=== PATIENT | female | born 1995 | race Caucasian/White ===

== ENCOUNTER 2022-03-18 10:21 | Emergency (ER) | payer OTHER, SELFPAY ==
[2022-03-18 10:32] VITALS: BP 137/85; PULSE 88; RESP 18; TEMP 37; O2SAT 100; BMI 26.2
[2022-03-18 11:22] VITALS: BP 137/85; PULSE 88; RESP 20; TEMP 37; O2SAT 100
[2022-03-18 11:22] LABS: UPreg QC Valid YES; Urine Pregnancy NEGATIVE (NEGATIVE)
[2022-03-18 11:32] LABS: Amphetamine Screen Urine Not Detected (Not Detect); Barbiturates, Urine Not Detected (Not Detect); Benzodiazepines Screen Urine Not Detected (Not Detect); Cannabinoid Screen Urine Not Detected (Not Detect); Cocaine Screen Urine Not Detected (Not Detect); Fentanyl, urine Not Detected (Not Detect); Opiate Screen Urine Not Detected (Not Detect); Phencyclidine Screen Urine Not Detected (Not Detect)
[2022-03-18 11:34] LABS: COVID-19 Test Negative (Negative); IDNOW Serial# 55D5AD1C
[2022-03-18 12:00] VITALS: RESP 20
--- NOTE | 2022-03-18 12:01 | ED.PSYCH ---
HPI - Psych General Chief Complaint: Psychiatric Symptoms Stated Complaint: Crisis Depression Time Seen by Provider: 03/18/22 11:26 Source: patient and other (Friend/neighbor) Mode of arrival: ambulatory Limitations: no limitations History of Present Illness HPI Narrative: Patient is Romansh speaking only. Fur Stylist was offered but respectfully declined. Patient states she would prefer her friend/neighbor to interpret who is at bedside Patient comes to the emergency room complaining of depression. Patient states that she has had thoughts of hurting herself but she has never attempted to commit suicide. Denies suicidal ideation. Patient states that previously in [place], she was being treated for depression. Patient has not taking any medications for over year and a half. Patient states that she feels very stressed, currently going through immigration process. Patient requesting to be [facility] by [facility] and establish care in an outpatient basis. Related Data Allergies Allergy/AdvReac Type Severity Reaction Status Date / Time No Known Allergies Allergy Verified 03/18/22 10:37 Review of Systems Review of Systems: Constitutional : No Weight loss, No Fever, No Chills, No Night Sweats, No Fatigue, No Malaise ENT/Mouth : No Hearing loss, No Ear Pain, No Nasal Congestion, No Sinus Pain, No Hoarseness, No sore throat, No Rhinorrhea, No Swallowing Difficulty Eyes: No Eye Pain, No Swelling, No Redness, No Foreign Body, No Discharge, No Vision Changes Cardiovascular : No Chest Pain, No SOB, No Dyspnea on Exertion, No Orthopnea, No Edema, No Palpitations Respiratory : No Cough, No Sputum, No Wheezing, No Smoke Exposure, No Dyspnea Gastrointestinal : No Nausea, No Vomiting, No Diarrhea, No Constipation, No abdominal Pain, No Hematochezia, No Melena Genitourinary : no irregular bleeding, No Dysuria, No Urinary Frequency, No Hematuria, No Urinary Incontinence, No Urgency, No Flank Pain, No Urinary Flow Changes, No Hesitancy Musculoskeletal : No joint pain, No Myalgias, No Joint Swelling Skin : No Skin Lesions, No rash Neuro : No Weakness, No Numbness, No Paresthesias, No Loss of Consciousness, No Dizziness, No Headache Psych : No Anxiety/Panic, complaining of Depression, complaining of vague suicidal ideation, no homicidal ideation Heme/Lymph: No Bruising, No Bleeding,No Lymphadenopathy Endocrine : No Polyuria, No Polydipsia, No Temperature Intolerance PMFSH Past Medical History Medical History Hyperlipidemia Surgical History Hx of cholecystectomy Social History Social History Alcohol intake: never Patient Tobacco Use Status: Never used Tobacco Use of substances other than those prescribed or required for medical reasons: No Advance Directives: No Advance Directives Information Provided: Yes Patient : No Physical Exam Vital Signs: Vital Signs: Last Vital Signs Temp 98.6 F 03/18/22 11:22 Pulse 88 03/18/22 11:22 Resp 20 03/18/22 12:00 BP 137/85 03/18/22 11:22 Pulse Ox 100 03/18/22 11:22 O2 Del Method 03/18/22 11:22 BMI result Body Mass Index 26.2 Const: Other: Appearance: Alert. Oriented X3. No acute distress. Eyes: Pupils equal, round and reactive to light. ENT: Pharynx normal. Neck: Normal inspection. Neck supple. No lymph nodes noted. No crepitus CVS: Normal heart rate and rhythm. Pulses normal. Normal S1 and S2 Respiratory: No respiratory distress. Breath sounds normal. No Wheezing. No rales Abdomen: Soft and nontender. No rigidity. No distention. Skin: Skin warm and dry. Normal skin color. Normal skin turgor. Extremities: No lower extremity edema. No Lacerations. No Rash Neuro: Oriented X 3. No motor deficit. No sensory deficit. Moving all extremities. No slurred speech. CN 2 through 12 grossly intact Psych: calm, cooperative, normal affect Course Course Course Narrative: Patient's labs are pending [facility] consult pending. Physician observation started at 11:59 15:40, patient was evaluated by [facility], patient was given resources for outpatient treatment. Patient is not suicidal, ready for discharge MDM - Psych Lab Data Result diagrams: 03/18/22 12:40 03/18/22 12:40 Labs: Lab Results 03/18/22 03/18/22 03/18/22 Range/Units 11:06 11:06 11:06 WBC (4.8-10.8) X10*3/uL RBC (4.20-5.50) X10*6/uL Hgb (12.0-16.0) g/dl Hct (37.0-47.0) % MCV (80.0-98.0) fL MCH (27.0-33.0) pg MCHC (31.0-35.0) g/dl RDW (11.0-16.0) % Plt Count (160-400) X10*3/uL MPV (9.4-12.3) fL Immature Gran % (Auto) (0.0-0.4) % Neut % (Auto) (45-73) % Lymph % (Auto) (20-40) % [place] % (Auto) (2-11) % Eos % (Auto) (0-4) % Baso % (Auto) (0-2) % Lymph # (Auto) (1.2-4.9) X10*3/uL [place] # (Auto) (0.1-1.2) X10*3/uL Eos # (Auto) (0.0-0.4) X10*3/uL Baso # (Auto) (0.0-0.2) X10*3/uL Abs Immat Gran (auto) (0.00-0.03) X10*3/uL Absolute Neuts (auto) (2.0-8.3) x10*3/uL Absolute Nucleated RBC (0.0-0.012) X10*3/uL Nucleated RBC % (auto) (0.0-0.2) /100WBC Sodium (135-145) mmol/L Potassium (3.3-5.1) mmol/L Chloride (96-108) mmol/L Carbon Dioxide (22-29) mmol/L Anion Gap (12-20) BUN (9-16) mg/dL Creatinine (0.5-1.4) mg/dL Estim Creat Clear Calc Estimated GFR Random Glucose (60-115) mg/dL Calcium (8.4-10.2) mg/dL Total Bilirubin (0.0-1.0) mg/dL Direct Bilirubin (0.0-0.5) mg/dL AST (5-31) U/L ALT (0-31) U/L Alkaline Phosphatase (39-117) U/L Total Protein (6.5-8.0) g/dL Albumin (3.5-5.0) g/dL Urine Test NEGATIVE (NEGATIVE) Urine Opiates Screen Not Detected (Not Detect) Urine Fentanyl Screen Not Detected (Not Detect) Ur Barbiturates Screen Not Detected (Not Detect) Ur Phencyclidine Scrn Not Detected (Not Detect) Ur Amphetamines Screen Not Detected (Not Detect) U Benzodiazepines Scrn Not Detected (Not Detect) Urine Cocaine Screen Not Detected (Not Detect) U Marijuana (THC) Screen Not Detected (Not Detect) Ethyl Alcohol mg/dL COVID-19 (PRINCE) Negative (Negative) COVID-19 Clin Com See Note 03/18/22 03/18/22 Range/Units 12:40 12:40 WBC 4.9 (4.8-10.8) X10*3/uL RBC 4.95 (4.20-5.50) X10*6/uL Hgb 12.9 (12.0-16.0) g/dl Hct 38.6 (37.0-47.0) % MCV 78.0 L (80.0-98.0) fL MCH 26.1 L (27.0-33.0) pg MCHC 33.4 (31.0-35.0) g/dl RDW 13.9 (11.0-16.0) % Plt Count 259 (160-400) X10*3/uL MPV 10.4 (9.4-12.3) fL Immature Gran % (Auto) 0.4 (0.0-0.4) % Neut % (Auto) 63.3 (45-73) % Lymph % (Auto) 26.9 (20-40) % [place] % (Auto) 8.2 (2-11) % Eos % (Auto) 0.8 (0-4) % Baso % (Auto) 0.4 (0-2) % Lymph # (Auto) 1.3 (1.2-4.9) X10*3/uL [place] # (Auto) 0.4 (0.1-1.2) X10*3/uL Eos # (Auto) 0.0 (0.0-0.4) X10*3/uL Baso # (Auto) 0.0 (0.0-0.2) X10*3/uL Abs Immat Gran (auto) 0.02 (0.00-0.03) X10*3/uL Absolute Neuts (auto) 3.1 (2.0-8.3) x10*3/uL Absolute Nucleated RBC 0.000 (0.0-0.012) X10*3/uL Nucleated RBC % (auto) 0.0 (0.0-0.2) /100WBC Sodium 139 (135-145) mmol/L Potassium 4.7 (3.3-5.1) mmol/L Chloride 107 (96-108) mmol/L Carbon Dioxide 25 (22-29) mmol/L Anion Gap 12 (12-20) BUN 10 (9-16) mg/dL Creatinine 0.71 (0.5-1.4) mg/dL Estim Creat Clear Calc 118.8 Estimated GFR > 60 Random Glucose 94 (60-115) mg/dL Calcium 8.8 (8.4-10.2) mg/dL Total Bilirubin 0.4 (0.0-1.0) mg/dL Direct Bilirubin < 0.2 (0.0-0.5) mg/dL AST 25 (5-31) U/L ALT 38 H (0-31) U/L Alkaline Phosphatase 75 (39-117) U/L Total Protein 7.1 (6.5-8.0) g/dL Albumin 4.2 (3.5-5.0) g/dL Urine Test (NEGATIVE) Urine Opiates Screen (Not Detect) Urine Fentanyl Screen (Not Detect) Ur Barbiturates Screen (Not Detect) Ur Phencyclidine Scrn (Not Detect) Ur Amphetamines Screen (Not Detect) U Benzodiazepines Scrn (Not Detect) Urine Cocaine Screen (Not Detect) U Marijuana (THC) Screen (Not Detect) Ethyl Alcohol < 10 mg/dL COVID-19 (PRINCE) (Negative) COVID-19 Clin Com Discharge Plan Discharge Clinical Impression: Depression Patient Disposition: Home, Self-Care Instructions: Depression (ED) Additional Instructions: Please follow-up with your primary care physician tomorrow. If you have any worsening or new symptoms, please return to the emergency room or call 911
[2022-03-18 12:44] LABS: MANUAL DIFF FLAG NO
[2022-03-18 12:55] LABS: Basophils Percent Auto 0.4 % (0-2); Eosinophils Percent Auto 0.8 % (0-4); Hematocrit 38.6 % (37.0-47.0); Hemoglobin 12.9 g/dl (12.0-16.0); Imm Gran Abs Auto 0.02 X10*3/uL (0.00-0.03); Imm Gran Pct Auto 0.4 % (0.0-0.4); Lymphocytes Absolute Auto 1.3 X10*3/uL (1.2-4.9); Lymphocytes Percent Auto 26.9 % (20-40); Mean Corpuscular HGB Conc 33.4 g/dl (31.0-35.0); Mean Corpuscular Hemoglobin 26.1 pg (27.0-33.0); Mean Platelet Volume 10.4 fL (9.4-12.3); Monocytes Absolute Auto 0.4 X10*3/uL (0.1-1.2); Monocytes Percent Auto 8.2 % (2-11); Neutrophils Absolute Auto 3.1 x10*3/uL (2.0-8.3); Neutrophils Percent Auto 63.3 % (45-73); Platelet Count 259 X10*3/uL (160-400); Red Blood Count 4.95 X10*6/uL (4.20-5.50); Red Cell Distribution Width 13.9 % (11.0-16.0); White Blood Count 4.9 X10*3/uL (4.8-10.8)
[2022-03-18 13:04] LABS: Alanine Aminotransferase 38 U/L (0-31); Albumin Level 4.2 g/dL (3.5-5.0); Alkaline Phosphatase 75 U/L (39-117); Anion Gap 12 (12-20); Aspartate Amino Transferase 25 U/L (5-31); Bilirubin Direct < 0.2 mg/dL (0.0-0.5); Bilirubin Total 0.4 mg/dL (0.0-1.0); Blood Urea Nitrogen 10 mg/dL (9-16); Calcium 8.8 mg/dL (8.4-10.2); Carbon Dioxide 25 mmol/L (22-29); Chloride 107 mmol/L (96-108); Creatinine Clr Calc Pharmacy 118.8; Estimated Glomerular Filt Rate > 60; Ethanol < 10 mg/dL; Glucose Random 94 mg/dL (60-115); Potassium 4.7 mmol/L (3.3-5.1); Sodium 139 mmol/L (135-145); Total Protein 7.1 g/dL (6.5-8.0)
--- NOTE | 2022-03-18 13:20 | PC.NURSE ---
Patient resting with friend at bedside- seen by MD, awaiting crisis evaluation.
[2022-03-18 14:00] VITALS: RESP 18
[2022-03-18 16:00] VITALS: RESP 18
--- NOTE | 2022-03-18 16:22 | PC.NURSE ---
patient discharged to care of friend
--- NOTE | 2022-03-28 13:03 | MHC.CARE ---
Care Team had a telephonic encounter with [facility] Aby Whatley and she transferred this chief underwriter to Dr. Pebbles Palmer and left a voice message. Purpose of call was to gain insight into a Icelandic Tajik speaking outpatient therapist for pt.
--- NOTE | 2022-03-28 13:21 | MHC.CARE ---
Care Team received a call from Dr. Pebbles Palmer and she reported she will email Dr. Michael to verify if they have a therapist that speaks Faroese Yi. She reported she will add this television writer to the email.
--- NOTE | 2022-03-28 13:45 | MHC.CARE ---
Care Team researched Cypriot Yoruba therapist in [employer]. This screen writer called [facility] [phone] and spoke to Amrit and he reported he has a therapist speaking the language pt was requesting, however, he is not accepting new patients at the moment. He requested to place pt on the waiting list. This screen writer called and spoke to pt and provided [facility] contact information, She agreed to be placed on the waiting list until a therapist is available.
--- NOTE | 2022-04-01 09:38 | MHC.CARE ---
Care Team was assisting pt in obtaining mental health services. This sports book writer received an email from [facility] Aguilar Pierson and she was provided with pt's contact information as she will follow up with mental health services for the pt.
== END 2022-03-18 16:22 | disposition home or self-care (01) ==
PROVIDERS: Emergency Provider Emergency Medicine
DX: F33.1 Major depressive disorder, recurrent, moderate (principal); Z20.822 Contact with and (suspected) exposure to COVID-19; Z79.899 Other long term (current) drug therapy
CPT/HCPCS: 36415; 80048; 80076; 80307; 81025; 82077; 85025; 87635; 99284; 99285

== ENCOUNTER 2024-02-25 12:49 | Outpatient (REF) | payer OTHER, SELFPAY ==
[2024-02-25 14:07] LABS: MANUAL DIFF FLAG NO
[2024-02-25 14:20] LABS: Basophils Percent Auto 0.2 % (0-2); Eosinophils Absolute Auto 0.1 X10*3/uL (0.0-0.4); Eosinophils Percent Auto 0.9 % (0-4); Hematocrit 42.7 % (37.0-47.0); Hemoglobin 13.7 g/dl (12.0-16.0); Imm Gran Abs Auto 0.01 X10*3/uL (0.00-0.03); Imm Gran Pct Auto 0.2 % (0.0-0.4); Lymphocytes Absolute Auto 1.4 X10*3/uL (1.2-4.9); Lymphocytes Percent Auto 26.5 % (20-40); Mean Corpuscular HGB Conc 32.1 g/dl (31.0-35.0); Mean Corpuscular Volume 77.9 fL (80.0-98.0); Mean Platelet Volume 10.6 fL (9.4-12.3); Monocytes Absolute Auto 0.4 X10*3/uL (0.1-1.2); Monocytes Percent Auto 7.4 % (2-11); Neutrophils Absolute Auto 3.5 x10*3/uL (2.0-8.3); Neutrophils Percent Auto 64.8 % (45-73); Platelet Count 304 X10*3/uL (160-400); Red Blood Count 5.48 X10*6/uL (4.20-5.50); Red Cell Distribution Width 13.5 % (11.0-16.0); White Blood Count 5.4 X10*3/uL (4.8-10.8)
[2024-02-25 14:51] LABS: Alanine Aminotransferase 25 U/L (0-31); Albumin Level 4.5 g/dL (3.5-5.0); Alkaline Phosphatase 86 U/L (39-117); Anion Gap 13 (12-20); Aspartate Amino Transferase 22 U/L (5-31); Bilirubin Total 0.5 mg/dL (0.0-1.0); Blood Urea Nitrogen 8 mg/dL (9-16); Calcium 9.8 mg/dL (8.4-10.2); Carbon Dioxide 25 mmol/L (22-29); Chloride 106 mmol/L (96-108); Cholesterol 280 mg/dL (<200); Estimated Glomerular Filt Rate > 60; Glucose Random 91 mg/dL (60-115); HDL Cholesterol 48 mg/dL (>40); LDL Cholesterol Calculated 213 mg/dL (<100); Potassium 4.7 mmol/L (3.3-5.1); Sodium 139 mmol/L (135-145); Total Protein 7.9 g/dL (6.5-8.0); Triglycerides 99 mg/dL (<150)
[2024-02-25 15:06] LABS: TSH reflex Free T4 1.87 uIU/mL (0.32-4.0)
[2024-02-26 08:09] LABS: HIV AB/AG Nonreactive (Nonreactive); HIV Num 1 0.05 S/CO (0.00-0.99); ~HepC Num1 0.08 S/CO (0.00-0.79); ~Hepatitis C Antibody Nonreactive (Nonreactive)
[2024-02-27 23:28] LABS: TS Negative Control Passed; TS Panel A 0; TS Panel B 0; TS Positive Control Passed; TSpotTB Negative (Negative)
[2024-02-29 21:08] LABS: RPR Rapid Plasma Reagin NON-REACTIVE (NON-REACTIVE)
== END 2024-02-25 12:50 | disposition home or self-care (01) ==
LOC: HO.CHCLDS 12:49
PROVIDERS: Visit Provider Family Medicine
DX: Z13.9 Encounter for screening, unspecified (principal); Z11.3 Encounter for screening for infections with a predominantly sexual mode of transmission; R53.83 Other fatigue; E66.3 Overweight
CPT/HCPCS: 36415; 80053; 80061; 84443; 85025; 86481; 86592; 86803; 87389

== ENCOUNTER 2024-05-06 12:09 | Outpatient (REF) | payer MEDICAID, OTHER, SELFPAY | END 2024-05-06 12:10 | disposition home or self-care (01) | LOC: HO.HHCX 12:09 | PROVIDERS: Visit Provider Family Medicine | DX: M25.562 Pain in left knee (principal); G89.29 Other chronic pain | CPT/HCPCS: 73564 ==

== ENCOUNTER 2024-05-11 08:44 | Outpatient (REF) | payer MEDICAID, OTHER, SELFPAY ==
[2024-05-11 10:39] LABS: Cholesterol 221 mg/dL (<200); HDL Cholesterol 43 mg/dL (>40); LDL Cholesterol Calculated 156 mg/dL (<100); Triglycerides 112 mg/dL (<150)
[2024-05-11 11:07] LABS: HBS Num1 87.07 mIU/mL (0-7.99); HBc Num1 0.09 S/CO (0.00-0.79); HBsAGNum1 0.41 S/CO (0.00-0.99); Hepatitis B Core Antibody Nonreactive (Nonreactive); Hepatitis B Surface Antigen Negative (Negative); ~Hepatitis B Surface Antibody REACTIVE (Nonreactive)
== END 2024-05-11 08:45 | disposition home or self-care (01) ==
LOC: HO.CHCLDS 08:44
PROVIDERS: Visit Provider Family Medicine
DX: Z01.84 Encounter for antibody response examination (principal); E78.5 Hyperlipidemia, unspecified
CPT/HCPCS: 36415; 80061; 86704; 86706; 87340

== ENCOUNTER 2024-05-24 11:51 | Outpatient (REF) | payer MEDICAID, OTHER, SELFPAY ==
[2024-05-25 09:57] LABS: Adenovirus PCR Not Detected (Not Detect.); Bordetella parapertussis PCR Not Detected (Not Detect.); Bordetella pertussis PCR Not Detected (Not Detect.); Chlamydia pneumoniae PCR Not Detected (Not Detect.); Coronavirus 229E PCR Not Detected (Not Detect.); Coronavirus HKU1 PCR Not Detected (Not Detect.); Coronavirus NL63 PCR Not Detected (Not Detect.); Coronavirus OC43 PCR Not Detected (Not Detect.); Human metapneumovirus PCR Not Detected (Not Detect.); Influenza A PCR Not Detected (Not Detect.); Influenza B PCR Not Detected (Not Detect.); Mycoplasma pneumoniae PCR Not Detected (Not Detect.); Parainfluenza 1 PCR Not Detected (Not Detect.); Parainfluenza 2 PCR Not Detected (Not Detect.); Parainfluenza 3 PCR Not Detected (Not Detect.); Parainfluenza 4 PCR Not Detected (Not Detect.); RSV PCR Not Detected (Not Detect.); Rhino/Enterovirus PCR Not Detected (Not Detect.)
[2024-05-25 10:02] LABS: SARS-CoV-2 PCR Not Detected (Not Detect.)
== END 2024-05-24 11:52 | disposition home or self-care (01) ==
LOC: HO.CHCLDS 11:51
PROVIDERS: Visit Provider Family Medicine
DX: J06.9 Acute upper respiratory infection, unspecified (principal)
CPT/HCPCS: 87633

== ENCOUNTER 2024-05-26 09:02 | Outpatient (REF) | payer MEDICAID, OTHER, SELFPAY | END 2024-05-26 09:03 | disposition home or self-care (01) | LOC: HO.LNP 09:02 | PROVIDERS: Visit Provider Family Medicine | DX: Z12.4 Encounter for screening for malignant neoplasm of cervix (principal) | CPT/HCPCS: 88175 ==

== ENCOUNTER 2024-11-03 17:41 | Outpatient (REF) | payer MEDICAID, OTHER, SELFPAY ==
--- OUTSIDE RECORDS SUMMARY | 2024-11-03 18:25 | XMS_ITS | Clinical Summary ---
Author Organization [employer] Address [address] [place] [address] Care Team Providers Care Industrial Sales Engineer Name Role Phone Mague Marreor MD Primary Care Provider [phone] Allergies No known active allergies Medications diclofenac (Cataflam) 50 MG tablet Take 1 tablet (50 mg) by mouth 3 times daily. 90 tablet 4 Active Blood Pressure kitIndications: Elevated blood pressure reading 1 Units Once per day. 1 kit 4 Active Sodium Fluoride 1.1 % cream Wilcox teeth for 2 minutes, morning and night. Spit, do not rinse. Do not eat or drink anything for 30 minutes following use. 112 g 3 5 Active tretinoin (Retin-A) 0.025 % creamIndication s:Acne vulgaris Apply topically at bedtime. 45 g 2 5 08/24/19 26 Active fluconazole (Diflucan) 150 MG tabletIndicatio ns:Acute vaginitis 1 tab every 3 days. 3 tablet 5 Active Active Problems Problem Noted Date Diagnosed Date Cervical cancer screening 05/24/2024 Assessment & Plan (05/24/2024 9:45 AM EST): 28 y.o. here for cervical cancer screening. Will continue monitoring following ASCCP guidelines. Upper respiratory tract infection 05/24/2024 Assessment & Plan (05/24/2024 9:51 AM EST): + strep rapid testing, sent antibiotics. Will send out resp panel due to other symptoms. Rtc if no improvement. Pt also c/o worsening PHILLIPS will send excedrin to use prn, if worsening recommended f.up prn Acne vulgaris 05/06/2024 Assessment & Plan (05/06/2024 2:56 PM EST): Referring to Dermatology for further evaluation. Chronic pain of left knee 02/25/2024 Overweight (BMI 25.0-29.9) 02/25/2024 Elevated blood pressure reading 02/25/2024 Assessment & Plan (02/26/2024 1:06 PM EDT): Report prior dx of PEC, did not check BP after delivery. Will send BP cuff f/up with nurse Nursing Visit Instructions: - If SBP < 140/DBP <90 mmHg in more than 75% of home self-monitoring, continue current medication regimen and make f/u with PCP in 3 month - If SBP >140-165/DBP >90-115 mmHg , add start amlodipine 5 mg and f/u with PCP in 1 month - If SBP > 165/ DBP> 115 mmHg, consult with covering provider - If SBP <90/DBP <50 mmHg, consult with covering provider. Annual physical exam 02/25/2024 Assessment & Plan (05/06/2024 2:55 PM EST): Advised to go to dentist every 6 months. Follow up on 05/24 for Pap Smear. Encounters Date Type Department Care Team Description 11/03/2024 1:20 PM EDT Office Visit [facility] [address] [place] [address] Audie Goodman MD Acute vaginitis (Primary Dx) 11/03/2024 Travel 11/02/2024 Telephone [facility] [address] [place] [address] Mague Marrero MD 08/23/2024 9:30 AM EDT Office Visit [facility] [address] [place] [address] Audie Goodman MD Acne vulgaris (Primary Dx) 08/23/2024 Travel from Last 3 Months Immunizations Immunization Administration Dates Next Due Influenza, Injectable, MDCK, preservative free 1 07/07/2023 Tdap 05/06/2024 Family History Medical History Relation Name Comments No Known Problems Brother Lung cancer Father Hyperlipidemia Mother Hypertension Mother Stroke Mother No Known Problems Sister No Known Problems Son Relation Name Status Comments Brother Father Mother Alive Sister Son Social History Tobacco Use Types Packs/Day Years Used Date Smoking Tobacco: Never Smokeless Tobacco: Never Tobacco Cessation:Counseling Given: Not Answered Alcohol Use Standard Drinks/Week Comments Defer 0 (1 standard drink = 0.6 oz pur e alcohol) Depression Answer Date Recorded Patient Health Questionnaire-9 Score 12 02/25/2024 Patient Health Questionnaire-9 Score 12 02/25/2024 Last PHQ-9: Questionnaire Data Not on file 1 Housing Stability Answer Date Recorded What is your housing situation today? I have may jiménez 02/25/[address] you li ve. Do you have problems with any of the following? None of the above 02/25/2024 Food Insecurity Answer Date Recorded Within the past 12 months, y ou worried that your food would run out before you got money to buy more: Never True 02/25/2024 Within the past 12 months,th e food you bought just didn't last and you didn't have enough money to get more: Never True 07/2023 Transportation Answer Date Recorded In the past 12 months, has l ack of transportation kept you from medical appts, meetings, work or from getting things needed for daily living? No 02/25/2024 Utilities Answer Date Recorded In the past 12 months, has t he electric, gas, oil or water company threatened to shut off services in your home? No 02/25/2024 Depression Answer Date Recorded Patient Health Questionnaire-2 Score 4 02/25/2024 Internet Access Answer Date Recorded Internet Access Q1 Yes 02/25/2024 Internet Access Q2 Not on file 02/25/2024 Comments No Sex and Gender Information Value Date Recorded Sex Assigned at Female 09/15/2022 11:30 AM EDT Legal Sex Female 1:12 PM EST Gender Identity Female 09/15/2022 11:30 AM EDT Sexual Orientation Straight 09/15/2022 11 :30 AM EDT Last Filed Vital Signs Vital Sign Reading Time Taken Comments Blood Pressure 134/86 11/03/2024 1:28 PM EDT Pulse 73 11/03/2024 1:28 PM EDT Temperature 36.8 ??C (98.2 ??F) 11/03/2024 1:28 PM ED T Respiratory Rate 20 11/03/2024 1:28 PM EDT Oxygen Saturation 97% 11/03/2024 1:28 PM EDT Inhaled Oxygen Concentration - - Weight 77.6 kg (171 lb) 11/03/2024 1:28 PM EDT Height 165 cm (5' 4.96 ) 11/03/2024 1:28 PM EDT Body Mass Index 28.49 11/03/2024 1:28 PM EDT Plan of Treatment Upcoming Encounters Date Type Department Care Team (Late st Contact Info) Description 11/11/2024 3:30 PM EDT Office Visit [facility] [address] [place] [address] Audie Goodmna MD [address] [place] [address] 12/12/2024 2:00 PM EDT Office Visit [facility] [address] [place] [address] Mango Goodman Health Maintenance Due Date Last Done Comments Dental Oral Exam 1995 Disability Screening 1995 Family Planning (PISQ) 11/23/2010 Hepatitis B Vaccines (1 of 3 - 19+ 3-dose series) 11/23/2014 Depression Monitoring 08/25/2024 02/25/2024 , 02/25/2024 Dental Prophylaxis 12/13/2024 06/14/2024 SDOH Screening 02/24/2025 02/25/2024 Alcohol/Substance Use Screening 05/06/2025 05/06/2024 COVID-19 Vaccine (1 - 2023-2 5 season) 2025 Postponed from 01/23 (Patient Refused) Dental X-Ray: Bitewings 05/20/2025 05/19/2024 Tobacco Screening 11/03/2025 11/03/2024 Dental X-Ray: Full Mouth 05/20/2027 05/19/2024 Pap Smear 05/24/2027 05/24/2024 DTaP/Tdap/Td Vaccines (2 - T d or Tdap) 05/06/2034 05/06/2024 Zoster Vaccines (1 of 2) 11/23/2045 RSV Patients and Patients Aged 60 years or older (1 - 1-dose 75+ series) 11/23/2070 HIV Screening Completed 02/25/2024 Hepatitis C Screening Completed 02/25/2024 Influenza Vaccine Completed 05/06/2024 HIB Vaccines Aged Out No longer eligi ble based on patient's age to complete this topic HPV Vaccines Aged Out No longer eligi ble based on patient's age to complete this topic Hepatitis A Vaccines Aged Out No long er eligible based on patient's age to complete this topic IPV Vaccines Aged Out No longer eligi ble based on patient's age to complete this topic Meningococcal B Vaccine Aged Out No l onger eligible based on patient's age to complete this topic Meningococcal Vaccine Aged Out No jeanette sarah eligible based on patient's age to complete this topic Pneumococcal Vaccine: Pediatrics (0 to 5 Years) and At-Risk Patients (6 to 49) Years) Aged Out No longer eligible b ased on patient's age to complete this topic RSV under 20 months Aged Out No longe r eligible based on patient's age to complete this topic Rotavirus Vaccines Aged Out No longer eligible based on patient's age to complete this topic Procedures Procedure Name Priority Date/Time Associated Diagnosis Comments POCT URINALYSIS DIPSTICK Routine 11/03/2024 1:57 PM EDT Acute vaginitis PROPHYLAXIS - ADULT Routine 06/14/2024 3 :00 PM EST PAP SMEAR Routine 05/24/2024 9:25 AM EST Cervical cancer screening INTRAORAL - COMPLETE SERIES OF RADIOGRAPHIC IMAGES Routine 05/19/2024 11:00 AM EST HEPATITIS C AB W/REFL TO HCV RNA, QN, PCR Routine 02/25/2024 12:49 PM EDT Encounter for health-related screening HIV 1/2 ANTIGEN/ANTIBODY, FOURTH GENERATION W/RFL Routine 02/25/2024 12:49 PM EDT Encounter for health-related screening from Last 3 Months or Most Recently Relevant to Health Maintenance Results * POCT Urinalysis (11/03/2024 1:57 PM EDT) Color, UA Yellow Clarity, UA Clear Glucose, UA Negative Bilirubin, UA Negative Ketones, UA Negative Spec Grav, UA 1.020 Blood, UA Negative Negative, None Detected pH, UA 7.0 Protein, UA Negative Urobilinogen, UA 0.2 Leukocytes, UA Negative Negative, Rare, Trace Nitrite, UA Negative Negative, None Detected Appearance, UA clear QC Media Lot # [id number] Lot# Expiration Date Urine 11/03/2024 1:57 PM EDT us Audie Goodman MD POINT OF CARE TEST ENTER/ED IT ORDERABLES Final Result * Pap Smear (05/24/2024 9:25 AM EST) Swab Cervix uteri structure / Unknown 05/24/2024 9:25 AM EST 05/26/2024 8:35 AM EST Narrative [facility] - 05/27/2024 12:55 PM EST ----- ------- Name: Carrie Simon ?Age/Sex: 28/F ? : 1995 Unit#: [id number] ?? Attend Dr: Mague Marrero MD ?Re05/26/24 ?Status: DEP REF ? Location: HO.LNP ?Disch: ? ----- ------- SPEC : [id number] ? RECD: 05/26/24 ? STATUS: ??SOUT ? REQ NUM: [id number] ? ANGELIKA: 05/24/24 ? SUBM DR: Mague Marrero MD ? ENTERED: ??05/26/24 ?SP TYPE: Pap Smr ?OTHR : ? ORDERED: ??Pap Smear ? Interpretation ?? Satisfactory for evaluation. ?? Negative for intraepithelial lesion or malignancy. ?Clinical Information LMP: 05/04/2024 Previous PAP test: Unknown date/findings ? Material Received ?? ThinPrep-Cervical ----- ------- Signed (signature on file) MICHELLE Almanza (ASCP) 05/27/24 1255 ? ----- ------- ? END OF REPORT ? Mague Marrero MD LAB CYTOLOGY ORDERABLES Final Result Performing Organization Address [facility] de Phone Number [facility] [address] [place] [address] [phone] * Hepatitis C Antibody with Reflex to HCV, RNA, Quantitative, Real-Time PCR (02/25/2024 12:49 PM EDT) Pathologist [facility] Hepatitis C Antibody Nonreactive Nonreactive [facility] Comment:Antibodies to HCV no t detected; does not exclude early acuteHCV infection. Blood Venous blood specimen / Unknown 02/25/2024 12:49 PM EDT 02/25/2024 2:07 PM EDT us Mague Marrero MD LAB BLOOD ORDERABLES Final Re sult Performing Organization Address [facility] Co de Phone Number [facility] [address] [place] [address] [phone] * HIV-1/2 Antigen and Antibodies, Fourth Generation, with Reflexes (02/25/2024 12:49 PM EDT) Pathologist [facility] HIV AB/AG Nonreactive Nonreactive [facility] Comment:HIV-1 p24 Ag and/or HIV-1/HIV-2 Ab not detected.A test result that is nonreactive does not exclude thepossibility of exposure to or infection with HIV-1 and/orHIV-2. Nonreactive results in this assay for individualswith prior exposure to HIV-1 and/or HIV-2 may be due toantigen and antibody levels that are below the limit ofdetection of this assay.The [employer] HIV Ag/Ab Combo assay result andsupplemental assay results should be interpreted inconjunction with the patient's clinical presentation,history and other laboratory results. If the results areinconsistent with clinical evidence, additional testing issuggested to confirm the result. Blood Venous blood specimen / Unknown 02/25/2024 12:49 PM EDT 02/25/2024 2:07 PM EDT us Mague Marrero MD LAB BLOOD ORDERABLES Final Re sult [facility] [address] [place] [address] [phone] from Last 3 Months or Most Recently Relevant to Health Maintenance Insurance [facility] LIMITED [facility] FULL [address] [place] [address] DENTAL-[facility] MEDICAID LIMITED ADULT DENTAL - HSN FULL (MEDICAID) Care Teams Industrial Sales Engineer Relationship Specialty Start Date End Date Mague Marrero MD [address] [place] [phone] PCP - General Family Medicine 02/25/24
[2024-11-03 18:49] LABS: Bacterial Vaginosis PCR NEGATIVE (Negative); Candida Group PCR DETECTED (Not Detect); Candida glab krusei PCR NOT DETECTED (Not Detect); Trichomonas vaginalis PCR NOT DETECTED (Not Detect)
[2024-11-03 19:18] LABS: CT PCR NOT DETECTED (Not Detect.); NG PCR NOT DETECTED (Not Detect.)
== END 2024-11-03 17:42 | disposition home or self-care (01) ==
LOC: HO.CHCLNP 17:41
PROVIDERS: Visit Provider Internal Medicine
DX: N76.0 Acute vaginitis (principal)
CPT/HCPCS: 81515; 87086; 87491; 87591